=== PATIENT | female | born 1995 | race Two or more races ===

== ENCOUNTER 2020-07-10 10:44 | Inpatient (IN) | payer MEDICAID, OTHER ==
[~2020-07-10] VITALS: Ht 160 cm; Wt 66.2 kg
[2020-07-10] MEDS ORDERED: WITCH HAZEL-GLYCERIN PAD TOP PRN (11:15)
[2020-07-10] MEDS ORDERED: LIDOCAINE 2%HCL (LOCAL ANESTH.) INJ 20ML MDV IJ PRN (11:15)
[2020-07-10] MEDS ORDERED: DERMOPLAST 60ML BOTTLE TOP PRN (11:15)
[2020-07-10] MEDS ORDERED: LACT. RINGERS/OXYTOCIN 20UNITS 1,000 ML IV ONE ×2 (11:15→17:30)
[2020-07-10] MEDS ORDERED: PHISODERM TOP SOLN 240ML BTL TOP PRN (11:15)
[2020-07-10] MEDS ORDERED: LACT. RINGERS/OXYTOCIN 20UNITS 1,000 ML IV SCH (11:15)
[2020-07-10] MEDS: LACTATED RINGER'S 1,000 ML IV SCH ×2 (11:17→13:44)
[2020-07-10] MEDS ORDERED: PENICILLIN G POT 5MIL/D5 50ML 50 ML IV ONE (11:30)
[2020-07-10] MEDS ORDERED: PREN-96 PO (11:38)
[2020-07-10 12:29] LABS: Basophils # (auto) 0 10 ^3/uL (0-0.2); Eosinophils # (auto) 0 10 ^3/uL (0-0.8); Hemoglobin 9.4 g/dL (12.2-16.2); Lymphocytes # (auto) 0.6 10 ^3/uL (0.4-5.4); Mean Corpuscular Hgb Conc. 32.8 g/dL (32.0-36.0); Monocytes # (auto) 0.4 10 ^3/uL (0-1.3); Nucleated Red Blood Cells % 0.1 %
[2020-07-10 12:31] LABS: Basophils % (auto) 0.3 % (0.0-2.0); Hematocrit 28.6 % (36.0-46.0); Lymphocytes % (auto) 9.3 % (10.0-50.0); Mean Corpuscular Hemoglobin 25.6 pg (28.0-32.0); Mean Corpuscular Volume 77.8 fL (80.0-100.0); Monocytes % (auto) 6.6 % (0.0-12.0); Neutrophils # (auto) 5.7 10 ^3/uL (1.6-8.6); Neutrophils % (auto) 83.8 % (37.0-80.0); Platelet Count (auto) 328 10^3/uL (140-450); Red Blood Cells 3.68 10^6/uL (4.0-5.20); Red Cell Distribution Width 14.7 % (11.8-14.3); White Blood Cell 6.9 10^3/uL (4.4-10.8)
[2020-07-10 12:33] LABS: Urine WBC None Seen /hpf (0 - 5)
[2020-07-10] MEDS ORDERED: PROMETHAZINE HCL 25 MG/ML 1ML ONE (12:39)
[2020-07-10 12:42] LABS: Albumin 2.7 g/dL (3.4-5.0); Calcium 8.4 mg/dL (8.5-10.1); Potassium 3.8 mmol/L (3.5-5.1)
[2020-07-10] MEDS: ceFAZolin 1GM/50ML 50 ML IV SCH ×2 (12:43→20:50)
[2020-07-10] MEDS ORDERED: PROMETHAZINE HCL 25 MG/ML 1ML IV PRN (12:45)
[2020-07-10] MEDS ORDERED: BUTORPHANOL TARTRATE 2 MG/1 ML VIAL IV PRN (12:45)
[2020-07-10 12:46] LABS: BUN/Creatinine Ratio 11.5; Bilirubin, Total 0.5 mg/dL (0.2-1.0); Total Protein 6.7 g/dL (6.4-8.2)
[2020-07-10 13:03] LABS: Alcohol, Urine < 3.0 mg/dL (0-10); Amphetamine Screen, Urine NEGATIVE (NEGATIVE); Barbiturate Scree,Urine NEGATIVE (NEGATIVE); Benzodiazephine Screen, Urine NEGATIVE (NEGATIVE); Cannabinoid Screen, Urine POSITIVE (NEGATIVE); Cocaine Screen, Urine NEGATIVE (NEGATIVE); Opiate Scree,Urine NEGATIVE (NEGATIVE); Phencyclidine Screen, Urine NEGATIVE (NEGATIVE)
[2020-07-10 13:10] LABS: INR 0.91 (0.9-1.15); Partial Thromboplastin Time 24.2 sec (23.0-31.2)
[2020-07-10 13:19] LABS: Urine Amorphous Crystal MANY /hpf (None Seen); Urine Bacteria FEW /hpf (None Seen); Urine Blood 3+ /uL (Negative); Urine Mucus FEW (None Seen); Urine Specific Gravity 1.014 (1.001-1.035)
[2020-07-10] MEDS ORDERED: fentaNYL 400mCg/200ml W ROPIVA 200 ML EPI SCH ×2 (13:45→14:45)
[2020-07-10] MEDS ORDERED: ROPIVACAINE HCL 100 ML EPI SCH (13:45)
[2020-07-10] MEDS ORDERED: NALOXONE HCL 0.4 MG/ML VIAL IV ONE ×2 (13:45→14:45)
[2020-07-10] MEDS ORDERED: LIDOCAINE HCL 2 %PF INJ 10ML AMP IJ ONE (13:45)
[2020-07-10] MEDS ORDERED: fentaNYL CITRATE 100 MCG/2 ML VL IV ONE (13:45)
[2020-07-10] MEDS ORDERED: LACTATED RINGER'S 500 ML IV ONE (13:45)
[2020-07-10] MEDS ORDERED: ePHEDrine SULFATE 50 MG/ML AMP IV ONE ×2 (13:45→14:45)
[2020-07-10] MEDS ORDERED: PENICILLIN G POTASSIUM 2,500,000 UNITS in D5W 5% 50 ML IV SCH (15:30)
[2020-07-10] MEDS ORDERED: ONDANSETRON HCL 4 MG/2 ML VIAL ONE (16:19)
[2020-07-10] MEDS ORDERED: miSOPROStol 100 mcg TAB ONE (16:19)
[2020-07-10] MEDS ORDERED: CARBOPROST TROMETHAMINE 250 MCG/1ML VIAL IM ONE ×2 (16:20→16:27)
[2020-07-10] MEDS: CARBOPROST TROMETHAMINE 250 MCG/1ML VIAL IM PRN ×3 (16:20→17:04)
[2020-07-10] MEDS ORDERED: METHYLERGONOVINE MALEATE 0.2 MG/ML AMP IM ONE (16:21)
[2020-07-10] MEDS ORDERED: DIPHENOXYLATE W/ATROPINE 2.5 MG TAB PO ONE (16:30)
[2020-07-10] MEDS ORDERED: ONDANSETRON HCL 4 MG/2 ML VIAL IV PRN (16:45)
[2020-07-10] MEDS ORDERED: miSOPROStol 100 mcg TAB SL ONE (17:30)
[2020-07-10] MEDS ORDERED: CARBOPROST TROMETHAMINE 250 MCG/1ML VIAL IM PRN (17:30)
[2020-07-10] MEDS ORDERED: IBUPROFEN 600 MG TAB PO PRN ×2 (17:30→20:45)
[2020-07-10] MEDS ORDERED: miSOPROStol 100 mcg TAB PR ONE (17:30)
[2020-07-10] MEDS ORDERED: hydrALAZINE HCL 20 MG/ML VL ONE (17:51)
[2020-07-10] MEDS ORDERED: hydrALAZINE HCL 20 MG/ML VL IV ONE (18:00)
[2020-07-10 19:30] VITALS: BP 130/82
[2020-07-10] MEDS: ACETAMINOPHEN 325 MG TAB PO PRN (20:51)
[2020-07-10] MEDS ORDERED: FERROUS SULFATE 325 MG TAB PO ONE (22:00)
[2020-07-10 23:11] VITALS: BP 115/71
[2020-07-11 03:05] VITALS: BP 115/63
[2020-07-11 05:06] LABS: RPR Non Reactive (Non Reactive)
[2020-07-11 05:17] LABS: Basophils # (auto) 0 10 ^3/uL (0-0.2); Eosinophils # (auto) 0 10 ^3/uL (0-0.8)
[2020-07-11] MEDS: ceFAZolin 1GM/50ML 50 ML IV SCH ×2 (05:20→13:32)
[2020-07-11 05:21] LABS: Basophils % (auto) 0.3 % (0.0-2.0); Hematocrit 25.3 % (36.0-46.0); Hemoglobin 8.5 g/dL (12.2-16.2); Lymphocytes % (auto) 9.3 % (10.0-50.0); Mean Corpuscular Hemoglobin 25.9 pg (28.0-32.0); Mean Corpuscular Hgb Conc. 33.5 g/dL (32.0-36.0); Mean Corpuscular Volume 77.1 fL (80.0-100.0); Monocytes % (auto) 9.8 % (0.0-12.0); Neutrophils # (auto) 8.5 10 ^3/uL (1.6-8.6); Neutrophils % (auto) 80.6 % (37.0-80.0); Platelet Count (auto) 320 10^3/uL (140-450); Red Blood Cells 3.28 10^6/uL (4.0-5.20); Red Cell Distribution Width 14.6 % (11.8-14.3); White Blood Cell 10.6 10^3/uL (4.4-10.8)
[2020-07-11 07:20] VITALS: BP 117/79
[2020-07-11] MEDS: FERROUS SULFATE 325 MG TAB PO SCH ×2 (07:39→17:34)
[2020-07-11] MEDS: ACETAMINOPHEN 325 MG TAB PO PRN ×2 (08:31→17:35)
[2020-07-11 10:52] VITALS: BP 125/63
[2020-07-11 14:22] VITALS: BP 121/72
[2020-07-11 19:18] VITALS: BP 119/75
== END 2020-07-11 19:57 | disposition home or self-care (01) | DRG 560 ==
LOC: LDRP 10:44 → OBSVTOIN 11:06 → LDRP 11:16
PROVIDERS: ADMIT Obstetrics & Gynecology; ATTEND Obstetrics & Gynecology
PROC: 10E0XZZ Delivery of Products of Conception, External Approach (ICD-10-PCS; principal; 2020-07-10)
PROC: 3E0R3BZ Introduction of Anesthetic Agent into Spinal Canal, Percutaneous Approach (ICD-10-PCS; 2020-07-10)
PROC: 00HU33Z Insertion of Infusion Device into Spinal Canal, Percutaneous Approach (ICD-10-PCS; 2020-07-10)
PROC: 0HQ9XZZ Repair Perineum Skin, External Approach (ICD-10-PCS; 2020-07-10)
DX: O70.0 First degree perineal laceration during delivery (principal); Z3A.38 38 weeks gestation of pregnancy; Z37.0 Single live birth; O90.81 Anemia of the puerperium; D64.9 Anemia, unspecified; O99.324 Drug use complicating childbirth; F12.90 Cannabis use, unspecified, uncomplicated; Z20.822 Contact with and (suspected) exposure to COVID-19
CPT/HCPCS: 36415; 59025; 59409; 76805; 80053; 80307; 81001; 81002; 85025; 85610; 85730; 86592; 86703; 86762; 86850; 86900; 86901; 87340; 87426; 96360; 96361; 96365; 96366; 96372; 96374; G0378; J0690; J2405; J2540; J2590; J7060

== ENCOUNTER 2021-05-30 10:05 | Inpatient (IN) | payer MEDICAID ==
[~2021-05-30] VITALS: Ht 160 cm; Wt 57.5 kg
[~2021-05-30 10:05] MED LIST: PREN-96 PO
[2021-05-30 11:13] LABS: Basophils # (auto) 0 10 ^3/uL (0-0.2); Basophils % (auto) 0.7 % (0.0-2.0); Eosinophils # (auto) 0 10 ^3/uL (0-0.8); Eosinophils % (auto) 0.4 % (0.0-7.0); Hematocrit 36.7 % (36.0-46.0); Hemoglobin 12.2 g/dL (12.2-16.2); Lymphocytes # (auto) 0.4 10 ^3/uL (0.4-5.4); Lymphocytes % (auto) 12.7 % (10.0-50.0); Mean Corpuscular Hgb Conc. 33.2 g/dL (32.0-36.0); Mean Corpuscular Volume 87.5 fL (80.0-100.0); Monocytes # (auto) 0.3 10 ^3/uL (0-1.3); Neutrophils # (auto) 2.2 10 ^3/uL (1.6-8.6); Neutrophils % (auto) 77.2 % (37.0-80.0); Nucleated Red Blood Cells % 0.3 %; Red Cell Distribution Width 21.4 % (11.8-14.3); White Blood Cell 2.8 10^3/uL (4.4-10.8)
[2021-05-30 11:33] LABS: Calcium 9.2 mg/dL (8.5-10.1); Magnesium 2.6 mg/dL (1.6-2.6); Potassium 3.7 mmol/L (3.5-5.1)
[2021-05-30 11:33] LABS: Urine Bacteria NONE SEEN /hpf (None Seen); Urine Blood TRACE /uL (Negative); Urine Mucus MODERATE (None Seen); Urine Specific Gravity 1.031 (1.001-1.035); Urine WBC 12 /hpf (0 - 5)
[2021-05-30 11:39] LABS: BUN/Creatinine Ratio 11.5; Bilirubin, Total 1.4 mg/dL (0.2-1.0); Total Protein 7.9 g/dL (6.4-8.2)
[2021-05-30] MEDS ORDERED: THIAMINE 100mg/ml INJ (200mg/2ml VIAL) IV ONE (12:45)
[2021-05-30] MEDS ORDERED: ONDANSETRON HCL 4 MG/2 ML VIAL IV ONE (12:45)
[2021-05-30] MEDS ORDERED: SODIUM CHLORIDE 0.9% 1,000 ML IV ONE ×2 (12:45)
[2021-05-30 12:53] LABS: Amylase 120 U/L (25-115); Lipase 1488 U/L (73-393)
[2021-05-30 14:01] LABS: Amphetamine Screen, Urine NEGATIVE (NEGATIVE); Barbiturate Scree,Urine NEGATIVE (NEGATIVE); Benzodiazephine Screen, Urine NEGATIVE (NEGATIVE); Cannabinoid Screen, Urine POSITIVE (NEGATIVE); Cocaine Screen, Urine NEGATIVE (NEGATIVE); Opiate Scree,Urine NEGATIVE (NEGATIVE); Phencyclidine Screen, Urine NEGATIVE (NEGATIVE)
[2021-05-30] MEDS ORDERED: MORPHINE SULFATE INJECTION 2 MG/ML SYRG IV PRN ×2 (15:30)
[2021-05-30] MEDS ORDERED: ONDANSETRON HCL 4 MG/2 ML VIAL IV PRN (15:30)
[2021-05-30] MEDS ORDERED: HYDROcodone-ACET 5/325MG TAB PO PRN (15:30)
[2021-05-30] MEDS ORDERED: NITROGLYCERIN 0.4 MG SL TAB SL PRN (15:30)
[2021-05-30] MEDS ORDERED: ACETAMINOPHEN 325 MG TAB PO PRN (15:30)
[2021-05-30] MEDS: SODIUM CHLORIDE 0.9% 1,000 ML IV SCH (21:05)
[2021-05-31 01:26] VITALS: BP 117/80
[2021-05-31 06:00] VITALS: BP 125/47
[2021-05-31 07:09] LABS: Basophils # (auto) 0 10 ^3/uL (0-0.2); Basophils % (auto) 1.1 % (0.0-2.0); Eosinophils # (auto) 0 10 ^3/uL (0-0.8); Eosinophils % (auto) 1.8 % (0.0-7.0); Hematocrit 30.8 % (36.0-46.0); Lymphocytes # (auto) 0.4 10 ^3/uL (0.4-5.4); Lymphocytes % (auto) 16.4 % (10.0-50.0); Mean Corpuscular Hemoglobin 28.9 pg (28.0-32.0); Mean Corpuscular Hgb Conc. 32.6 g/dL (32.0-36.0); Mean Corpuscular Volume 88.6 fL (80.0-100.0); Monocytes # (auto) 0.3 10 ^3/uL (0-1.3); Monocytes % (auto) 11.7 % (0.0-12.0); Neutrophils # (auto) 1.5 10 ^3/uL (1.6-8.6); Nucleated Red Blood Cells % 0.3 %; Red Blood Cells 3.47 10^6/uL (4.0-5.20); White Blood Cell 2.2 10^3/uL (4.4-10.8)
[2021-05-31 07:21] LABS: Albumin 3.1 g/dL (3.4-5.0); Calcium 8.6 mg/dL (8.5-10.1)
[2021-05-31 07:29] LABS: BUN/Creatinine Ratio 21.7; Bilirubin, Total 0.7 mg/dL (0.2-1.0); Total Protein 6.1 g/dL (6.4-8.2)
[2021-05-31] MEDS: SODIUM CHLORIDE 0.9% 1,000 ML IV SCH ×3 (07:30→20:00)
[2021-05-31 09:00] VITALS: BP 118/68
[2021-05-31] MEDS: cefTRIAXone 1GM/50ML D5W 50 ML IV SCH (09:00)
[2021-05-31] MEDS: ENOXAPARIN SOD 40 MG/0.4 ML SYRINGE SC SCH (10:00)
[2021-05-31] MEDS ORDERED: PANTOPRAZOLE 40 MG/10 ML VIAL INJ IV ONE (12:00)
[2021-05-31 13:00] VITALS: BP 120/88
[2021-05-31] MEDS ORDERED: CLINIMIX PER PHARMACY 0 ML IV SCH (15:30)
[2021-05-31 16:03] LABS: Magnesium 1.8 mg/dL (1.6-2.6); Phosphorus 2.6 mg/dL (2.5-4.90)
[2021-05-31 16:08] LABS: Pre Albumin 18.1 mg/dL (20.0-40.0)
[2021-05-31 17:00] VITALS: BP 120/92
[2021-05-31] MEDS ORDERED: AMINO ACID INFUSION IN D10W 1,000 ML IV NR (20:00)
[2021-05-31 22:00] VITALS: BP 125/94
[2021-05-31] MEDS: PANTOPRAZOLE 40 MG/10 ML VIAL INJ IV SCH (23:56)
[2021-06-01] MEDS ORDERED: DEXTROSE (50%) 50ML SYRG IV SCH
[2021-06-01 05:00] VITALS: BP 126/91
[2021-06-01] MEDS: InsuLIN REG 1unit/0.01ml Soln (100units/ml) SC SCH ×2 (06:00)
[2021-06-01] MEDS: ACCU-CHEK COMFORT CURVE STRIP VI SCH ×2 (06:21)
[2021-06-01 07:46] LABS: Magnesium 1.8 mg/dL (1.6-2.6); Potassium 3.7 mmol/L (3.5-5.1)
[2021-06-01 07:54] LABS: Albumin 3.7 g/dL (3.4-5.0); BUN/Creatinine Ratio 13.3; Bilirubin, Total 0.8 mg/dL (0.2-1.0); Calcium 8.8 mg/dL (8.5-10.1); Phosphorus 1.9 mg/dL (2.5-4.90); Total Protein 6.9 g/dL (6.4-8.2)
[2021-06-01] MEDS: SODIUM CHLORIDE 0.9% 1,000 ML IV SCH (08:03)
[2021-06-01] MEDS: cefTRIAXone 1GM/50ML D5W 50 ML IV SCH (09:25)
[2021-06-01] MEDS: PANTOPRAZOLE 40 MG/10 ML VIAL INJ IV SCH (09:25)
[2021-06-01] MEDS: ENOXAPARIN SOD 40 MG/0.4 ML SYRINGE SC SCH (09:26)
== END 2021-06-01 09:55 | disposition left against medical advice (07) | DRG 280 ==
LOC: ER 10:05 → OVERFLOW 15:20 → WEST WING 23:36
PROVIDERS: ADMIT Internal Medicine; ATTEND Internal Medicine
DX: K70.9 Alcoholic liver disease, unspecified (principal); K85.20 Alcohol induced acute pancreatitis without necrosis or infection; D61.818 Other pancytopenia; Z53.29 Procedure and treatment not carried out because of patient's decision for other reasons; K76.0 Fatty (change of) liver, not elsewhere classified; Z20.822 Contact with and (suspected) exposure to COVID-19; N39.0 Urinary tract infection, site not specified
CPT/HCPCS: 36415; 74176; 76705; 80053; 80307; 80320; 81001; 81025; 82040; 82150; 82962; 83690; 83735; 84100; 84478; 85025; 87426; 96361; 96374; 96375; 96376; C9113; G0378; J0696; J2405